=== PATIENT | female | born 1975 | race Caucasian/White ===

== ENCOUNTER 2018-02-16 19:07 | Emergency (ER) | payer BC ==
[~2018-02-16] VITALS: Ht 162.6 cm; Wt 78.0 kg
[2018-02-17] MEDS ORDERED: SODIUM CHLORIDE 0.9% 1,000 ML IV ONE (00:02)
[2018-02-17] MEDS ORDERED: CEFTRIAXONE 1 G PREMIX 50 ML IV ONE (00:15)
[2018-02-17] MEDS ORDERED: AZITHROMYCIN 500 MG in DEXT 5% WATER 250 ML IV ONE (00:15)
[2018-02-17] MEDS ORDERED: ALBUTEROL (0.083%) 2.5MG/3ML NEB HHN STA (02:35)
[2018-02-17] MEDS ORDERED: IPRATROPIUM BROMIDE (0.02%) 0.5MG/2.5ML NEB HHN STA (02:35)
[2018-02-17 02:53] LABS: BASOPHILS % 1.2 % (0.0-2.0); HEMATOCRIT. 38.6 % (36.0-48.0); HEMOGLOBIN. 13.2 g/dL (12.0-16.0); LYMPHOCYTES % 8.9 % (20.0-50.0); MEAN CORPUSCULAR HEMOGLOBIN 31.8 pg (28.0-32.0); MEAN CORPUSCULAR VOLUME 92.7 fL (81.0-99.0); MEAN PLATELET VOLUME 9.2 fl (7.4-10.4); MONOCYTES % 5.7 % (2.0-8.0); NEUTROPHILS % 77.2 % (40.0-76.0); PLATELET 252 x1000/uL (130-400); RED BLOOD CELL COUNT 4.16 mill/uL (4.2-5.4); RED CELL DISTRIBUTION WIDTH 12.7 % (11.6-14.6)
[2018-02-17 03:04] LABS: CHLORIDE 105 mEq/L (98-107)
[2018-02-17 03:05] LABS: B-HCG QUANTITATIVE 11 mIU/mL (<3)
[2018-02-17 04:25] VITALS: BP 118/82
== END 2018-02-17 04:27 | disposition home or self-care (01) ==
LOC: ER 19:07
DX: J20.9 Acute bronchitis, unspecified (principal); F17.211 Nicotine dependence, cigarettes, in remission
CPT/HCPCS: 36415; 71045; 80053; 83605; 83880; 84484; 84702; 85025; 86850; 86900; 86901; 87040; 93005; 94640; 96365; 96368; 99285; J0456; J0696; J7030; J7611; J7060